=== PATIENT | female | born 1985 | race Caucasian/White ===

== ENCOUNTER 2016-08-02 14:12 | Emergency (ER) | payer MEDICAID ==
[~2016-08-02] VITALS: Ht 170.2 cm; Wt 102.2 kg
[2016-08-02 14:39] VITALS: BP 135/76
== END 2016-08-02 17:04 | disposition left against medical advice (07) ==
LOC: EMS 14:13
DX: R10.31 Right lower quadrant pain (principal); R11.0 Nausea; I10 Essential (primary) hypertension; F17.200 Nicotine dependence, unspecified, uncomplicated; Z53.21 Procedure and treatment not carried out due to patient leaving prior to being seen by health care provider